=== PATIENT | male | born 1980 | race Caucasian/White ===

== ENCOUNTER 2016-12-23 18:34 | Inpatient (IN) | payer MEDICARE, OTHER ==
--- NOTE | ~2016-12-23 | CT96 ---
[facility] A Service of [facility] & [facility] RADIOLOGY TEXT RESULTS PATIENT: TETE YAN LOCATION: [facility] 463-01 : [birth year] UNIT #: [id number] AGE: [address]: Cachorro Haro MD SEX: M ORDER DR: [id number] [facility] [address] [facility] [place] [facility]. [place], [place] [address] [id number] I MR#: [id number] Acc #: [id number] NAME: TETE YAN : 1980 SEX: M STUDY DATE/TIME: 01/06/2017 14:40 UNIT: [facility] ROOM: [facility] STUDY DESCRIPTION: CT Lumbar Spine W Cont Attending Physician: Cachorro Haro M.D. Ordering Physician: Cachorro Haro M.D. Primary Care Physician: Ty Ureña M.D. MEDICAL IMAGING REPORT This report is preliminary unless electronic signature is present EXAM CT lumbar spine postmyelogram dated 01/06/2017. COMPARISON Lumbar myelogram dated 01/06/2017, MRI lumbar spine study without contrast dated 12/25/2016 and MRI lumbar spine study with contrast dated 12/26/2016. HISTORY Patient fell on 12/10/2016 with severe low back pain since then. FINDINGS This CT exam was performed with one or more of the following radiation dose reduction techniques: Automatic exposure control, adjustment of mA and/or kV according to patient size, and iterative reconstruction. CT of the lumbar spine was obtained postmyelogram in the axial plane followed by sagittal and coronal reformats. The same numbering is used as the prior MRI studies to avoid confusion. The degenerative and postoperative changes do not appear to have significantly changed involving the spine, in the last 12 days. The postoperative fluid collection noted previously is difficult to individually characterize in the current study given the differences in modality. Levoscoliosis of the lumbar spine is seen with the apex at L2. There are pedicular screws at L4 and S1 with loosening of bilateral L4 (left greater than right) and left S1 pedicular screw, particularly close to the tip. Anterior plate and screws are seen at L5-S1. The bilateral S1 vertebral body anterior screws demonstrate loosening. Intervertebral disc prosthesis is seen at L5-S1 and L4-5 without bony fusion. Bilateral L5 pars defects are noted with grade II spondylolisthesis at L5-S1. There is a 1.2 cm retrolisthesis of S1 with respect to L5. Posterior decompression is noted at L5-S1 with widely patent thecal sac. Postoperative inflammatory soft tissue changes are noted in the paraspinal muscles without any obvious STS. [facility] A Service of [facility] RADIOLOGY TEXT RESULTS PATIENT: TETE YAN LOCATION: [facility] 463-01 : [birth year] UNIT #: [id number] AGE: [address]: Cachorro Haro MD SEX: M ORDER DR: large drainable fluid collection. Bone graft is seen adjacent to the stabilization rods. IMPRESSION 1. Posterior decompression is seen at L5-S1 with widely patent thecal sac. 2. Bilateral L5 pars defects are noted with a grade II 1.2 cm retrolisthesis of S1 with respect to L5. 3. Loosening of bilateral L4 and left S1 pedicular screws are noted. 4. Anterior plate with screws are seen at L5-S1 with suspicious loosening at bilateral anterior S1 screws. 5. Intervertebral disc prosthesis at L4-5 and L5-S1 are noted without any significant bony fusion. 6. Previously noted fluid collection in the postoperative paraspinal soft tissues are difficult to individually characterize in the current study given the difference in modality. The thecal sac does not demonstrate any communication outside of it to suggest a pseudomeningocele. 7. Refer above. Dictated by... Karel Smith M.D. THIS IS AN ELECTRONICALLY VERIFIED REPORT Karel Smith M.D. at 01/07/2017 10:30 AM CPR/psc TD: 01/07/2017 03:35 JOB #: [id number] MEDICAL IMAGING REPORT COPY
--- NOTE | ~2016-12-23 | CO ---
Unit #: [id number] #: [id number] Patient: TETE YAN [id number] [address] [place], [place] [address] [id number] I MR#: [id number] NAME: TETE YAN ROOM: 463 Age: 36 Sex: M Admission Date: 12/23/2016 : 1980 Attending Physician: Cachorro Haro M.D. Primary Care Physician: Ty Ureña M.D. Consultation Date: 12/26/2016 CONSULTATION REPORT REQUESTING PHYSICIANS 1. Dr. Haro. 2. Dr. Seaman. REASON FOR CONSULTATION Positive blood culture. HISTORY OF PRESENT ILLNESS Patient is a 35-year-old male with history of multiple lumbar spine surgeries including hardware implant and explant. Last 1 was, I think, late last year. He was admitted to [facility] in October of last year and had methicillin sensitive Staphylococcus aureus bacteremia thought to because of line, which was removed. From the notes, it looks like he was sent out on 10 days of p.o. Keflex. Patient tells me that he has been on IV antibiotics for the last three months after his recent surgery, which was done two weeks ago, and the PICC line was removed. There is a lot of conflicting news and according to previous notes, patient does have a manipulative behavior. He is admitted again at this time with back pain, episodes of fall. Blood culture, one of two, grew Staphylococcus aureus and sensitivity is pending. He is on vancomycin. Infectious disease consultation was requested for further evaluation and antibiotic management. Patient denies any fever, chills, vomiting, headaches, or dizziness. PAST MEDICAL HISTORY 1. Lumbar stenosis and spondylolisthesis, L5-S1. 2. Multiple back surgeries. 3. Hypertension. 4. On female hormones with plans to transition to female gender. 5. MSSA bacteremia in the past. 6. Tonsillectomy. 7. Appendectomy. SOCIAL HISTORY Noncontributory. FAMILY HISTORY Noncontributory. ALLERGIES Allergic to Bactrim, Ultram, tramadol, Haldol, and Benadryl. MEDICATIONS Current medications reviewed. Antibiotics include vancomycin. Unit #: [id number] #: [id number] Patient: TETE YAN PHYSICAL EXAMINATION GENERAL APPEARANCE: Laying in bed. Does not seem to be in any distress. VITAL SIGNS: Temperature 98.2, pulse 90, respirations 18, and blood pressure 108/75. HEENT: Unremarkable. NECK: Supple. CHEST: Clear to auscultation. HEART: Normal S1 and S2. ABDOMEN: Soft and nontender. EXTREMITIES: Shows no edema. BACK: With evidence of previous surgery but no open area. DIAGNOSTIC STUDIES IMAGING: MRI of the lumbar spine without contrast as patient was unable to do images after contrast shows some phlegmon and previous surgery changes with no active enhancement. LABORATORY: BUN 12 and creatinine 0.9. WBC 11.9, hemoglobin 10, and platelets 558. Urinalysis unremarkable. Blood culture, one out of two, gram-positive cocci identified as Staphylococcus aureus sensitivity is pending. ASSESSMENT 1. Staphylococcus aureus bacteremia. Question source. 2. History of MSSA bacteremia in October treated with oral antibiotics. 3. History of multiple back surgeries. PLAN At this time, I would go ahead and get an echocardiogram to rule out endocarditis. Will also add urine tox screen. Will get MRI of the lumbar spine with contrast and give him some extra dose of pain medications per medicine team. Continue vancomycin. Follow up cultures. Further recommendations depending upon the course. I would like to thank Dr. Haro for asking us to participate in the care of this patient. We will follow this patient along with you. Dictated by.Keven. Augie Sarmiento TD: 12/26/2016 12:10 JOB #: [id number] CONSULTATION REPORT X Haim Orellana MD CONSULTATION REPORT
--- NOTE | ~2016-12-23 | CR192 ---
[facility] A Service of [facility] & [facility] RADIOLOGY TEXT RESULTS PATIENT: TETE YAN LOCATION: [place] [address]- : [birth year] UNIT #: [id number] AGE: [address]: Cachorro Haro MD SEX: M ORDER DR: [id number] [place] [address] [facility]. [place], [place] [address] [id number] I MR#: [id number] Acc #: [id number] NAME: TETE YAN : 1980 SEX: M STUDY DATE/TIME: 01/06/2017 14:05 UNIT: [facility] ROOM: [facility] STUDY DESCRIPTION: CR Myelogram Lumbar SI Attending Physician: Cachorro Haro M.D. Ordering Physician: Cachorro Haro M.D. Primary Care Physician: Ty Ureña M.D. MEDICAL IMAGING REPORT This report is preliminary unless electronic signature is present EXAM Lumbar myelogram HISTORY Previous back surgeries. Since the previous surgery in late fall, the patient fell in a parking lot in October with back pain radiating down the right leg since. TECHNIQUE The procedure was explained to the patient, including risks, benefits and complications. Informed consent was obtained and a formal time-out procedure was utilized. Using sterile technique and following local anesthesia with 1% Xylocaine, a 22-gauge spinal needle was placed at the L3-4 level. Approximately 13 mL of Isovue M-200 was injected and multiple views were obtained. No exiting nerve root sleeve filling defects are noted. The spinal canal shows no significant stenosis. CT scanning will be obtained through the lumbar spine following the myelogram, with results reported separately. IMPRESSION No evidence of significant canal stenosis. No evidence of exiting nerve root compression. CT scanning following the myelogram is pending. Dictated by... Js Arzola M.D. THIS IS AN ELECTRONICALLY VERIFIED REPORT Js Arzola M.D. at 01/07/2017 4:42 PM RLF/gertrude TD: 01/06/2017 21:23 JOB #: [id number] [facility] A Service of [facility] & [facility] RADIOLOGY TEXT RESULTS PATIENT: TETE YAN LOCATION: [facility] 463-01 : [birth year] UNIT #: [id number] AGE: [address]: Cachorro Haro MD SEX: M ORDER DR: MEDICAL IMAGING REPORT COPY
--- NOTE | ~2016-12-23 | NM8 ---
[facility] A Service of [facility] & [facility] RADIOLOGY TEXT RESULTS PATIENT: TETE YAN LOCATION: [facility] 463- : [birth year] UNIT #: [id number] AGE: [address]: Cachorro Haro MD SEX: M ORDER DR: [id number] [address] [place], [place] [address] [id number] I MR#: [id number] Acc #: [id number] NAME: TETE YAN : 1980 SEX: M STUDY DATE/TIME: 12/29/2016 16:13 UNIT: [facility] ROOM: [facility] STUDY DESCRIPTION: NM Bone or Joint Whole Body Attending Physician: Cachorro Haro M.D. Ordering Physician: Cachorro Haro M.D. Primary Care Physician: Ty Ureña M.D. MEDICAL IMAGING REPORT This report is preliminary unless electronic signature is present EXAM Whole-body bone scan. DATE OF EXAM 12/29/2016 HISTORY 36-year-old male complains of severe right leg pain, back pain, hurts to lie on back. Symptoms began after patient fell. Patient fell three times around 2 weeks ago. History of back surgery. COMPARISON MRI of the lumbar spine, 12/26/2016. FINDINGS Whole-body and selected spot images performed of the axial and appendicular skeleton following the intravenous administration of 27.9 mCi technetium 99m MDP. Examination demonstrates mild increased uptake within the medial compartment of both knees suggesting early degenerative arthropathy. There is also degenerative uptake within the feet and ankles. There is increased uptake in the lower lumbar spine corresponding to the site of the patient's prior surgery, but this is not well demonstrated due to overlying artifact from the patient's distended bladder with extensive bladder activity. No abnormal uptake identified within the mid to upper lumbar spine. Bilateral renal activity and normal bladder activity noted. Multifocal increased uptake is seen within the maxilla and also within the right mandible, probably related to underlying periodontal disease. Correlate clinically. IMPRESSION 1. Technically limited study for evaluation of abnormality in the lumbar region and pelvis due to marked distension of the bladder and overlying bladder activity. STS. [facility] A Service of [facility] & [facility] RADIOLOGY TEXT RESULTS PATIENT: TETE YAN LOCATION: [place] [address] : [birth year] UNIT #: [id number] AGE: [address]: Cachorro Haro MD SEX: M ORDER DR: 2. Mild degenerative uptake medial compartment of both knees. 3. Multifocal degenerative uptake in both feet and ankles. 4. There is mild increased uptake in the lower lumbar spine at about the L4-5 level best seen on the posterior acquisitions, and corresponds to the site of the patient's previous back surgery. 5. Not mentioned above, there is a small amount of increased uptake within the cervical spine, possibly degenerative in nature. Dictated by... Charlie Farfan M.D. THIS IS AN ELECTRONICALLY VERIFIED REPORT Charlie Farfan M.D. at 01/01/2017 10:26 AM Mars TD: 12/30/2016 16:04 JOB #: [id number] MEDICAL IMAGING REPORT COPY
--- NOTE | ~2016-12-23 | CO ---
Unit #: [id number] #: [id number] Patient: TETE YAN [id number] [address] [address] [id number] I MR#: [id number] NAME: TETE YAN ROOM: 463 Age: 36 Sex: M Admission Date: 12/23/2016 : 1980 Attending Physician: Cachorro Haro M.D. Primary Care Physician: Ty Ureña M.D. Consultation Date: 12/23/2016 CONSULTATION REPORT REASON FOR CONSULTATION Medical management. HISTORY OF PRESENT ILLNESS This 36-year-old male with history of hypertension, chronic low back pain, on female hormones as the patient plans to transition to a female gender, is admitted to the surgical service for acute on chronic low back pain. We were asked to see for medical problems. The patient does have a history of chronic low back pain and is status post back surgery x3. He states that he has recently fallen due to hypotension and did required admission to [facility] recently where his antihypertensive medications were discontinued. Due to worsening back pain and right lumbar radiculopathy he was directly admitted to the spine surgery service. Currently, despite his usual MS Contin and Oxycodone along with muscle relaxant, he is in quite a bit of pain. He has been experiencing some nausea and vomiting as well. PAST MEDICAL HISTORY 1. Severe lumbar stenosis and spondylolisthesis L5-S1 status post multiple back surgeries. Last surgery was in October where he underwent revision of his hardware with removal of a left L5 pedicle screw. 2. Previous history of hypertension with episodes of hypotension and syncope while on antihypertensive medication. 3. The patient is on female hormones and plans to transition to a female gender in the future. 4. MRSA bacteremia and sepsis. Admitted to [facility] last fall. Will obtain records. 5. Back surgery x3. 6. Tonsillectomy. 7. Appendectomy. SOCIAL HISTORY The patient lives with his mother and girlfriend. Remote history of tobacco use, does not drink alcohol or use illicit drugs. FAMILY HISTORY CAD. ALLERGIES Bactrim, Ultram, Toradol, Haldol and Benadryl. MEDICATIONS Unit #: [id number] #: [id number] Patient: TETE YAN Estradiol 2 mg b.i.d. Aldactone 100 mg b.i.d. Provera 10 mg q h.s. MS Contin 30 mg b.i.d. Oxycodone 20 mg q 3 hours. Zanaflex 4 mg t.i.d. as needed. Soma 350 mg b.i.d. REVIEW OF SYSTEMS Notable for increasing back pain and right lumbar radiculopathy. Previous history of hypertension, MRSA, above mentioned surgeries. All other systems are reviewed and are negative. PHYSICAL EXAMINATION GENERAL APPEARANCE: 36-year-old male who currently appears to be uncomfortable. VITAL SIGNS: Temp 98.2, pulse 88, respirations 18, 02 saturation 100% on room air, B/P 134/89. HEENT: Eyes - PERRLA, extraocular muscles are intact. Pharynx - poor dentition. NECK: Supple without adenopathy or thyromegaly. LUNGS: Chest is clear. HEART: Normal S1 and S2 without S3, S4 or murmur. ABDOMEN: Bowel sounds are present. No hepatosplenomegaly, tenderness or masses. EXTREMITIES: Without CC or E. Pedal pulses are present. No splinter hemorrhages noted over the fingernail beds. NEUROLOGIC: The patient is anxious but awake, alert, oriented. His cranial nerves are intact. He has equal strength throughout but has quite a bit of pain with any sore of movement of the right leg. Straight leg raising is positive at about 10 degrees. ASSESSMENT 1. Acute on chronic low back pain with right lumbar radiculopathy status post back surgery x3. Plans are for a CT myelogram in the morning and pain management to see. 2. History of hypertension with recent low blood pressure and syncope requiring discontinuation of antihypertensive medications. Vital signs are stable. 3. Urinary frequency. 4. Patient plans to transition to a female gender and is taking Estradiol, Provera and Aldactone. 5. History of MRSA bacteremia. PLAN 1. Check baseline labs and blood cultures. 2. Discontinue Toprol and Norvasc which were written on the JAN. 3. Old records from [facility]. 4. Obtain urinalysis. 5. DVT prophylaxis has already been ordered. Thank you very much for this consult. Will follow with you. Dictated by... Ally Hussein M.D. Unit #: [id number] #: [id number] Patient: TETE YAN AML/ljd TD: 12/24/2016 03:37 JOB #: [id number] CONSULTATION REPORT X Ally Hussein MD CONSULTATION REPORT
--- NOTE | ~2016-12-23 | MR111 ---
[facility] A Service of [facility] RADIOLOGY TEXT RESULTS PATIENT: TETE YAN LOCATION: [place] [address]- : [birth year] UNIT #: [id number] AGE: [address]: Cachorro Haro MD SEX: M ORDER DR: [id number] [place] [id number] [facility]. [place], [place] [address] [id number] I MR#: [id number] Acc #: [id number] NAME: TETE YAN : 1980 SEX: M STUDY DATE/TIME: 12/26/2016 16:55 UNIT: [facility] ROOM: [facility] STUDY DESCRIPTION: MR Lumbar W Contrast Attending Physician: Cachorro Haro M.D. Ordering Physician: Haim Orellana M.D. Primary Care Physician: Ty Ureña M.D. MRI CENTER REPORT This report is preliminary unless electronic signature is present. EXAM Lumbar spine MRI post contrast, 12/26/16 COMPARISON STUDIES Noncontrast lumbar MRI, 12/25/16 CLINICAL HISTORY Lumbar surgery with low back pain for 2 weeks. FINDINGS There is rim enhancement around the margins of the fluid identified on the prior study, but it is fairly modest. The findings appear to most likely represent a postoperative seroma. Of course, abscess cannot be excluded, but it is not strongly suspected based on the findings here. Of note, there is no substantial or abnormal intrathecal enhancement. There is no unexpected or abnormal enhancement of the bony spinal column or intervertebral disk. IMPRESSION 1. Postcontrast images do show some rim enhancement around the fluid collection seen on the other exam, but the findings do not convincingly suggest an abscess, but rather likely represent those of a postoperative seroma. 2. No other unusual or unexpected enhancement is seen. Dictated by... Alberto Shipley M.D. THIS IS AN ELECTRONICALLY VERIFIED REPORT Alberto Shipley M.D. at 12/29/2016 12:27 PM [facility] A Service of [facility] & [facility] RADIOLOGY TEXT RESULTS PATIENT: TETE YAN LOCATION: [facility] 46- : [birth year] UNIT #: [id number] AGE: [address]: Cachorro Haro MD SEX: M ORDER DR: Jodi TD: 12/27/2016 05:26 JOB #: [id number] MRI CENTER REPORT COPY
--- NOTE | ~2016-12-23 | A ---
[facility] Nutrition Therapy DATE: 01/02/17 Patient: TETE YURIY Physician: SONG Address: [address] [place], [place] [address]PATI LAWLER Room/Bed: [address] [place] [address], Zip: [place] [address] Admit Date: 12/23/16 Date of : [birth year] Height: 6 0 Weight: 231 105 NUTRITIONAL ASSESSMENT: REASON: LOS NUTRITION ASSESSMENT 36 YO MALE ADMITTED FOR NAUSEA, LUMBAR STENOSIS, UNCONTROLLED PAIN PMH: HTN, multiple back surgeries, on female hormones with plans to transition to female, MSSA, appendectomy Anthropometrics: Ht: 6'0" Adm wt: 105 kg BMI: 31.4 Labs: Gluc 123 Na+ 134 Meds: Reglan, KCl, oxycodone I/O & Bowel function: 1030/700, last BM 12/30 Skin Integrity: Scar to right forearm/ back Edema: None noted Diet: Regular Assessment: Chart reviewed, events noted. Pt seen for LOS nutrition assessment. RD attempted nutrition interview, and the pt was asleep with phone to ear. RD attempted to wake pt several times without success. Of note, the pt does have uncontrolled pain on pain medication. RD spoke with senior care manager Kaykay about the pt. Apparently the pt does not typically eat well for breakfast; however, consumes ~75-80% of lunch and dinner meals. Dx: Potential for inadequate nutrient intake RT lethargy, pain AEB senior care managermanager ct, attempted nutrition interview. Intervention: 1. Regular diet 2. Ensure if needed Monitoring, Evaluation and Goals: 1. Oral intake; tolerate >50-75% meals 2. Labs; WNL 3. Weight; prevent unintentional weight loss Recommendations: 1. Continue regular diet as tolerated. [facility] Therapy DATE: 01/02/17 Patient: TETE YAN Physician: SONG Address: [address] [place], [place] [address]PATI LAWLER Room/Bed: [address] [place] [address], Zip: [place] [address] Admit Date: 12/23/16 Date of : [birth year] Height: 6 0 Weight: 231 105 2. Ensure once daily at breakfast time for supplemental nutrition. Pt is at mild nutritional risk. Respectfully, MICHAEL L MILLICENT, RD, LD [facility] cc: client file
--- NOTE | ~2016-12-23 | CR72 ---
[facility] A Service of [facility] & [facility] RADIOLOGY TEXT RESULTS PATIENT: TETE YAN LOCATION: [facility]- : [birth year] UNIT #: [id number] AGE: [address]: Cachorro Haro MD SEX: M ORDER DR: [id number] [facility] [address] [facility]. [place], [place] [address] [id number] I MR#: [id number] Acc #: [id number] NAME: TETE YAN : 1980 SEX: M STUDY DATE/TIME: 12/28/2016 00:31 UNIT: [facility] ROOM: [facility] STUDY DESCRIPTION: CR Chest Single View Portable Attending Physician: Cachorro Haro M.D. Ordering Physician: Cachorro Haro M.D. Primary Care Physician: Ty Ureña M.D. MEDICAL IMAGING REPORT This report is preliminary unless electronic signature is present EXAM Portable chest 12/28/2016 0031 hours INDICATION PICC placement today. FINDINGS AP portable views of the chest are compared with 11/03/2016. Right arm-approach PICC is at the cavoatrial junction. Lung volumes are low but the lungs are clear. Cardiac and mediastinal contours are within normal limits. No pneumothorax. Dictated by... Js Giordano Jr., M.D. THIS IS AN ELECTRONICALLY VERIFIED REPORT Js Giordano Jr., M.D. at 12/28/2016 8:36 PM KAYLEN/anitra TD: 12/28/2016 09:23 JOB #: [id number] MEDICAL IMAGING REPORT COPY
--- NOTE | ~2016-12-23 | MR113 ---
[facility] A Service of [facility] RADIOLOGY TEXT RESULTS PATIENT: TETE YAN LOCATION: [facility] 463-01 : [birth year] UNIT #: [id number] AGE: [address]: Cachorro Haro MD SEX: M ORDER DR: [id number] [facility] [address] [facility]. [place], [place] [address] [id number] I MR#: [id number] Acc #: [id number] NAME: TETE YAN : 1980 SEX: M STUDY DATE/TIME: 12/25/2016 20:54 UNIT: [facility] ROOM: [facility] STUDY DESCRIPTION: MR Lumbar Wo Contrast Attending Physician: Cachorro Haro M.D. Ordering Physician: Elma Diaz M.D. Primary Care Physician: Ty Ureña M.D. MRI CENTER REPORT This report is preliminary unless electronic signature is present. EXAM MRI of the lumbar spine without contrast dated 12/25/2016. COMPARISON CT lumbar spine without contrast dated 12/11/2016. HISTORY Severe low back pain which extends into the right hip for 2 weeks. FINDINGS Multisequence, multiplanar imaging of the lumbar spine was obtained without contrast as patient refused further imaging in the middle of the study. No nurse had given pain medications, patient was in severe pain and refused further imaging. Postoperative changes are noted with bipedicular screws at L4 and S1. 1.3 cm retrolisthesis of S1 is seen with respect to L5. Intervertebral disc prosthesis is at L4-5 and L5-S1. Posterior decompression is seen at L5-S1. Correlate with operative note. Susceptibility artifact from hardware is seen limiting evaluation. There is hyperintense T2 and hypointense T1 signal lesion noted within the posterior subcutaneous soft tissue extending from the midline at the level of L2-3, where it measures 1.5 x 2.2 cm, down to the level of L5-S1. It extends to the right paraspinous region from the level of L4-5 to L5-S1. This fluid collection was also seen on the prior CT from 12/11/2016 and it has not significantly increased after giving allowances to the differences in modality. Subcutaneous soft tissue edema is noted in the lumbar spine throughout its length. Retroperitoneum is unremarkable. L1-2, L2-3: Unremarkable. L3-4: Concentric disc bulge with small central protrusion and mild inferior right neural foraminal narrowing. Borderline sized to mild canal STS. [facility] A Service of [facility] RADIOLOGY TEXT RESULTS PATIENT: TETE YAN LOCATION: [place] [address] : [birth year] UNIT #: [id number] AGE: [address]: Cachorro Haro MD SEX: M ORDER DR: stenosis. L4-5, L5-S1: Postoperative changes are noted with patent thecal sac. Moderate bilateral L4-5 and severe bilateral L5-S1 neural foraminal narrowing are present. IMPRESSION 1. The patient refused postcontrast imaging as he could not lay further on the table. The current study was done without contrast. 2. Postoperative changes are noted from L4-S1 with intervertebral disc prosthesis and bipedicular screws, particularly at L4 and S1. Stable. 3. 1.3 cm retrolisthesis of S1 with respect to L5, stable. 4. Postoperative edematous changes within the paraspinal muscles from the level of L2 to the level of S1 are redemonstrated with a more focal hyperintense T2-signal lesion extending from the midline at the level of L2 and to L4 with some extension to the right paraspinous region from L4-5 to L5-S1 level. It is relatively stable when compared to the prior study and is most suggestive of postoperative seroma. An abscess cannot be completely excluded without postcontrast imaging, however, given the relative stability in the last 14 days it is probably a chronic process. 5. Degenerative changes of the other levels are relatively stable. Dictated by... Karel Smith M.D. THIS IS AN ELECTRONICALLY VERIFIED REPORT Karel Smith M.D. at 12/26/2016 2:51 PM CPR/tmw TD: 12/26/2016 09:07 JOB #: [id number] MRI CENTER REPORT COPY
--- NOTE | ~2016-12-23 | HP ---
Unit #: [id number] #: [id number] Patient: TETE YAN [id number] [address] [place], [place] [address] [id number] I MR#: [id number] NAME: TETE YAN ROOM: 463 Age: 36 Sex: M Admission Date: 12/23/2016 : 1980 Attending Physician: Cachorro Haro M.D. Primary Care Physician: Ty Ureña M.D. HISTORY AND PHYSICAL CHIEF COMPLAINT Nausea. HISTORY OF PRESENT ILLNESS The patient is a 36-year-old male who has had several lumbar spine procedures. He has had multiple falls and multiple ER admissions at [facility]. Most recently, a CT scan was obtained which did not show any change or dislodgement of his hardware. He complains of severe right leg pain when he is up and ambulatory with a walker. He was seen earlier today in the emergency room lobby by myself where he was given a prescription for MS Contin to take twice a day, 30 mg, #14, oxycodone to take every three hours as needed for pain, #56, and Soma 350 mg to take q.12 hours, #60 p.r.n. spasm. The patient reports severe nausea and vomiting at home. PAST MEDICAL HISTORY Severe lumbar stenosis and spondylolisthesis L5-S1. PAST SURGICAL HISTORY Posterior and anterior surgery. He had most recently in October revision of his hardware with removal of a left L5 pedicle screw. He initially responded well but has had multiple falls since that time without any interval dislodgment of his lumbar hardware. MRI scan of the lumbar spine did not reveal any disc herniations or other cause. He developed a weakness on the right side which resolved on its own after several days of bedrest. SOCIAL HISTORY He is a nonsmoker and nondrinker. REVIEW OF SYSTEMS Fourteen points negative except for History of Present Illness. PHYSICAL EXAMINATION LUNGS: Clear. HEART: Regular rate and rhythm. ABDOMEN: Soft and nontender. EXTREMITIES: He has global weakness in the right leg and guarding with difficulty of movement. He ambulates slowly with a walker. Well-healed surgical incision over the lumbar spine. DIAGNOSTIC STUDIES IMAGING: Recent CT scan shows no dislodgement or change in the position of his lumbar hardware. Unit #: [id number] #: [id number] Patient: TETE YAN CLINICAL IMPRESSION 1. Severe nausea. 2. Chronic low back pain. 3. Multiple falls, indeterminant etiology. RECOMMENDATIONS 1. Admission for workup of his nausea. I will ask Dr. Luis Felipe Zapien to consult regarding this. 2. Uncontrolled pain is a very difficult pain management. I will consult Dr. Sanchez for his advice in that regard. 3. New-onset falls unexplained by plain CT scan. Once the nausea resolves, we will get a CT myelogram or other test to determine the etiology if any. 1. Dictated by Augie Bosch/lyric TD: 12/23/2016 21:05 JOB #: [id number] CC: Augie Randall M.D. HISTORY AND PHYSICAL X Cachorro Haro MD X HISTORY AND PHYSICAL
--- NOTE | ~2016-12-23 | DS ---
Unit #: [id number] #: [id number] Patient: TETE YAN [id number] [address] [address] [id number] I MR#: [id number] NAME: TETE YAN ROOM: 463 Age: 36 Sex: M Admission Date: 12/23/2016 : 1980 Discharge Date: 01/07/2017 Attending Physician: Cachorro Haro M.D. Primary Care Physician: Ty Ureña M.D. DISCHARGE SUMMARY PRINCIPAL FINAL DIAGNOSIS Right leg lumbar radiculopathy. HISTORY OF PRESENT ILLNESS The patient is a 36-year-old, who was admitted with intractable right leg pain. Plain CT scan did not show any obvious findings. A CT myelogram showed loose hardware at both L4 screws. He was transferred to [facility] for definitive care, namely surgery. Dr. Sanchez was consulted for pain management. He was given his medications of OxyContin 60 mg and oxycodone 20 mg to take as needed for pain. Further care is within the [facility] Record System regarding his ongoing care. Dictated by... Augie Bosch/damion TD: 01/31/2017 02:58 JOB #: [id number] DISCHARGE SUMMARY Page 1 of 1 X Cachorro Haro MD X DISCHARGE SUMMARY
[~2016-12-23 18:34] MED LIST: ABILIFY PO; ALDACTONE; ALDACTONE100 MG PO; AMOXICILLIN500 M1 PO; ATENOLOL PO; ATIVAN; ATIVAN PO; BACITRACIN15 GM TP; BACITRACIN30 GM TOP; BACLOFEN10 MG PO; BENTYL10 MG DOB; BENTYL20 M1 PO; BUSPAR PO; CATAPRES0.1 MG PO; CLEOCIN PO; CLEOCIN150 M1 PO; CLEOCIN150 MG PO; COATED ASPIRIN325 M1 PO; DARVOCET-N 1001 TAB; DELTASONE20 MG PO; DEPAKOTE PO; DEPO-ESTRADIO5 MG/ML INJ; DIAZEPAM PO; DICLOFENAC PO; DILAUDID2 MG PO; DOXYCYCLINE; ESTRACE PO; ESTRACE2 M1 PO; FLEXERIL PO; FLEXERIL10 M1 PO; FLEXERIL10 MG PO; GENOPTIC5 ML OP; GENTAK3.5 GM OP; HCTZ PO; HORMONE THERAPY PO; HYDROCHLOROTHIA25 MG PO; IBUPROFEN PO; KEFLEX; KEFLEX500 M2 PO; KETOPROFEN PO; KLONOPIN PO; LAMICTAL PO; LEXAPRO; LEXAPRO PO; LISINOPRIL-HCTZ1 T15 PO; LITHIUM; LITHIUM PO; LODINE300 M1 PO; LOPRESSOR PO; LORTAB 10-3251 EACH PO; LORTAB 10/500 T1 TAB PO; LORTAB 7.5-5001 TAB PO; MEDROL DOSEPAK4 MG DOB; MEDROL DOSEPAK4 MG PO; METOPROLOL SUCC25 MG PO; METOPROLOL TART25 MG PO; MOBIC PO; MORPHINE PO; MOTRIN600 MG PO; MUSCLE RELAXER; NAPROSYN500 MG PO; NEURONTIN100 MG PO; NO MEDICATIONS; NORFLEX100 M1; NORFLEX100 M1 PO; NORVASC PO; OXYCODONE PO; PAXIL PO; PENICILLIN; PENICILLIN PO; PENICILLIN V P500 MG PO; PERCOCET 10/31 UDTA1 PO; PHENERGAN W/CO120 ML PO; PHENERGAN25 M1 DOB; PHENERGAN25 M1 PO; PHENERGAN25 MG PO; PREDNISONE PO; PREDNISONE10 MG/DOSE PO; PRINIVIL10 MG PO; PROTONIX PO; PROVERA10 MG PO; REQUIP1 MG PO; ROBAXIN 750750 M1 PO; ROBAXIN PO; ROBAXIN500 MG PO; ROCEPHIN; SEROQUEL; SEROQUEL PO; SOMA; TOPROL XL PO; TORADOL10 MG; TYLENOL #3 PO; ULTRAM PO; VICODIN 5/1 TAB 5/50 PO; VICODIN 5/500 T1 TAB PO; VISCOUS LIDOCAINE; VOLTAREN50 MG PO; VOLTAREN75 MG PO; ZANAFLEX4 M1; ZANAFLEX4 M1 PO; ZOFRAN ODT4 MG PO; ZOFRAN ODT4 MG/UDTAB SL; ZOFRANODT PO; ZOFRANODT SL; ZOLOFT; ZYPREXA PO; [UNRECOGNIZED DRUG - REMARK]
[2016-12-23] MEDS ORDERED: SOMA PO (20:45)
[2016-12-24 00:50] LABS: BASOPHIL% 0.3 % (0-2.5); EOSINOPHIL# 0.2 X10e3 (0-0.7); EOSINOPHIL% 1.3 % (0.0-7.0); HEMATOCRIT 32.1 % (38.0-50.0); HEMOGLOBIN 10.4 gm/dL (13.0-16.0); LYMPHOCYTE# 1.2 X10e3 (1.0-3.5); LYMPHOCYTE% 9.6 % (17.0-45.0); MEAN CELL VOLUME 74.3 FL (83-96); MEAN CORPUSCULAR HEMOGLOBIN 24.1 PG (28-34); MEAN CORPUSCULAR HGB CONC 32.5 g/dL (30-36); MEAN PLATELET VOLUME 6.8 FL (6.5-11.5); MONOCYTE# 1.1 X10e3 (0-1.0); MONOCYTE% 8.7 % (3.0-12.0); NEUTROPHIL# 10.3 X10e3 (1.5-7.1); NEUTROPHIL% 80.1 % (40-75); PLATELET COUNT 484 X10e3 (140-420); RED BLOOD COUNT 4.32 X10e (3.90-5.60); RED CELL DISTRIBUTION WIDTH 16.6 % (11.0-15.5); WHITE BLOOD COUNT 12.9 X10e3 (4.0-10.5)
[2016-12-24 00:51] LABS: DIFF IND NO
[2016-12-24 01:14] LABS: ALBUMIN SERUM 3.8 g/dL (3.5-5.0); ALKALINE PHOSPHATASE 83 U/L (32-92); ALT (SGPT) 15 U/L (10-40); AST (SGOT) 13 U/L (10-42); BILIRUBIN,TOTAL 0.4 mg/dL (0.2-2.0); BLOOD UREA NITROGEN 10 mg/dL (9-23); CALCIUM SERUM 8.6 mg/dL (8.4-10.2); CARBON DIOXIDE 25 mmol/L (22-31); CHLORIDE 106 mmol/L (100-111); GLOM FILT RATE Estimated ABOVE60 mL/min (>60); GLUCOSE FASTING 120 mg/dL (70-110); POTASSIUM 3.3 mmol/L (3.5-5.1); PROTEIN TOTAL SERUM 8.7 g/dL (6.0-8.3); SODIUM 137 mmol/L (135-145)
[2016-12-25 03:14] LABS: BASOPHIL# 0.1 X10e3 (0-0.3); BASOPHIL% 0.6 % (0-2.5); EOSINOPHIL# 0.4 X10e3 (0-0.7); EOSINOPHIL% 3.4 % (0.0-7.0); HEMATOCRIT 31.5 % (38.0-50.0); HEMOGLOBIN 10.2 gm/dL (13.0-16.0); LYMPHOCYTE# 2.2 X10e3 (1.0-3.5); LYMPHOCYTE% 18.9 % (17.0-45.0); MEAN CELL VOLUME 74.5 FL (83-96); MEAN CORPUSCULAR HGB CONC 32.2 g/dL (30-36); MEAN PLATELET VOLUME 7.2 FL (6.5-11.5); MONOCYTE# 1.4 X10e3 (0-1.0); MONOCYTE% 11.8 % (3.0-12.0); NEUTROPHIL# 7.6 X10e3 (1.5-7.1); NEUTROPHIL% 65.3 % (40-75); PLATELET COUNT 507 X10e3 (140-420); RED BLOOD COUNT 4.23 X10e (3.90-5.60); RED CELL DISTRIBUTION WIDTH 17.2 % (11.0-15.5); WHITE BLOOD COUNT 11.6 X10e3 (4.0-10.5)
[2016-12-25 03:19] LABS: DIFF IND NO
[2016-12-25 03:32] LABS: URINE SOURCE CLEAN CATCH
[2016-12-25 03:38] LABS: URINE APPEARANCE CLEAR; URINE BILIRUBIN NEG (NEG); URINE BLOOD NEG (NEG); URINE COLOR YELLOW; URINE GLUCOSE NEG (NEG); URINE KETONE NEG (NEG); URINE LEUKOCYTE ESTERASE NEG (NEG); URINE NITRATE NEG (NEG); URINE PH 5.5 (5-8); URINE PROTEIN NEG (NEG); URINE SPECIFIC GRAVITY 1.017 (1.003-1.035)
[2016-12-25 03:39] LABS: BLOOD UREA NITROGEN 9 mg/dL (9-23); CALCIUM SERUM 8.9 mg/dL (8.4-10.2); CARBON DIOXIDE 26 mmol/L (22-31); CHLORIDE 100 mmol/L (100-111); CREATININE SERUM 0.9 mg/dL (0.6-1.4); GLOM FILT RATE Estimated ABOVE60 mL/min (>60); GLUCOSE FASTING 95 mg/dL (70-110); MAGNESIUM 2.1 mg/dL (1.6-3.0); POTASSIUM 3.7 mmol/L (3.5-5.1); SODIUM 136 mmol/L (135-145)
[2016-12-25 03:42] LABS: CULTURE INDICATED? NO
[2016-12-26 03:26] LABS: HEMATOCRIT 32.4 % (38.0-50.0); HEMOGLOBIN 10.5 gm/dL (13.0-16.0); MEAN CELL VOLUME 74.1 FL (83-96); MEAN CORPUSCULAR HEMOGLOBIN 24.1 PG (28-34); MEAN CORPUSCULAR HGB CONC 32.5 g/dL (30-36); MEAN PLATELET VOLUME 6.9 FL (6.5-11.5); RED BLOOD COUNT 4.37 X10e (3.90-5.60); WHITE BLOOD COUNT 11.9 X10e3 (4.0-10.5)
[2016-12-26 03:58] LABS: BLOOD UREA NITROGEN 12 mg/dL (9-23); BUN/CREATININE RATIO 13.33; CALCIUM SERUM 9.2 mg/dL (8.4-10.2); CARBON DIOXIDE 28 mmol/L (22-31); CHLORIDE 98 mmol/L (100-111); CREATININE SERUM 0.9 mg/dL (0.6-1.4); GLOM FILT RATE Estimated ABOVE60 mL/min (>60); GLUCOSE FASTING 98 mg/dL (70-110); POTASSIUM 4.3 mmol/L (3.5-5.1); SODIUM 136 mmol/L (135-145)
[2016-12-26 11:04] LABS: PARTIAL THROMBOPLASTIN TIME 32.1 SECONDS (23.5-31.3); PROTHROMBIN TIME (PATIENT) 10.7 SECONDS (9.6-11.5)
[2016-12-26 21:14] LABS: AMPHETAMINE NEG (NEG); BARBITURATES NEG (NEG); BENZODIAZEPINES POS (NEG); COCAINE NEG (NEG); MARIJUANA NEG (NEG); OPIATES POS (NEG); TRICYCLIC ANTIDEPRESSANTS NEG (NEG); U METHADONE NEG (NEG)
[2016-12-27 03:43] LABS: BLOOD UREA NITROGEN 13 mg/dL (9-23); CARBON DIOXIDE 26 mmol/L (22-31); CHLORIDE 101 mmol/L (100-111); GLOM FILT RATE Estimated ABOVE60 mL/min (>60); GLUCOSE FASTING 115 mg/dL (70-110); MAGNESIUM 2.2 mg/dL (1.6-3.0); POTASSIUM 4.2 mmol/L (3.5-5.1); SODIUM 137 mmol/L (135-145)
[2016-12-28 04:13] LABS: BLOOD UREA NITROGEN 13 mg/dL (9-23); BUN/CREATININE RATIO 14.44; CALCIUM SERUM 8.6 mg/dL (8.4-10.2); CARBON DIOXIDE 24 mmol/L (22-31); CHLORIDE 104 mmol/L (100-111); CREATININE SERUM 0.9 mg/dL (0.6-1.4); GLOM FILT RATE Estimated ABOVE60 mL/min (>60); GLUCOSE FASTING 121 mg/dL (70-110); SODIUM 138 mmol/L (135-145)
[2016-12-29 03:13] LABS: HEMATOCRIT 29.6 % (38.0-50.0); HEMOGLOBIN 9.7 gm/dL (13.0-16.0); MEAN CORPUSCULAR HEMOGLOBIN 24.4 PG (28-34); MEAN CORPUSCULAR HGB CONC 32.9 g/dL (30-36); MEAN PLATELET VOLUME 6.7 FL (6.5-11.5); RED CELL DISTRIBUTION WIDTH 16.9 % (11.0-15.5); WHITE BLOOD COUNT 10.5 X10e3 (4.0-10.5)
[2016-12-29 03:37] LABS: BLOOD UREA NITROGEN 16 mg/dL (9-23); CALCIUM SERUM 8.8 mg/dL (8.4-10.2); CARBON DIOXIDE 27 mmol/L (22-31); CHLORIDE 103 mmol/L (100-111); GLOM FILT RATE Estimated ABOVE60 mL/min (>60); GLUCOSE FASTING 154 mg/dL (70-110); POTASSIUM 4.1 mmol/L (3.5-5.1); SODIUM 137 mmol/L (135-145)
[2016-12-30 03:40] LABS: BLOOD UREA NITROGEN 11 mg/dL (9-23); BUN/CREATININE RATIO 12.22; CALCIUM SERUM 8.6 mg/dL (8.4-10.2); CARBON DIOXIDE 25 mmol/L (22-31); CHLORIDE 102 mmol/L (100-111); CREATININE SERUM 0.9 mg/dL (0.6-1.4); GLOM FILT RATE Estimated ABOVE60 mL/min (>60); GLUCOSE FASTING 218 mg/dL (70-110); POTASSIUM 4.6 mmol/L (3.5-5.1); SODIUM 134 mmol/L (135-145)
[2016-12-31 06:31] LABS: URINE SOURCE CLEAN CATCH
[2016-12-31 06:48] LABS: URINE APPEARANCE CLEAR; URINE BILIRUBIN NEG (NEG); URINE BLOOD NEG (NEG); URINE COLOR YELLOW; URINE GLUCOSE NEG (NEG); URINE KETONE NEG (NEG); URINE LEUKOCYTE ESTERASE NEG (NEG); URINE NITRATE NEG (NEG); URINE PROTEIN NEG (NEG)
[2016-12-31 07:00] LABS: CULTURE INDICATED? NO
[2016-12-31 07:17] LABS: AMPHETAMINE NEG (NEG); BARBITURATES NEG (NEG); BENZODIAZEPINES POS (NEG); COCAINE NEG (NEG); MARIJUANA NEG (NEG); OPIATES POS (NEG); TRICYCLIC ANTIDEPRESSANTS NEG (NEG); U METHADONE NEG (NEG)
[2017-01-01 03:22] LABS: BLOOD UREA NITROGEN 10 mg/dL (9-23); BUN/CREATININE RATIO 11.11; CALCIUM SERUM 8.9 mg/dL (8.4-10.2); CARBON DIOXIDE 24 mmol/L (22-31); CHLORIDE 104 mmol/L (100-111); CREATININE SERUM 0.9 mg/dL (0.6-1.4); GLOM FILT RATE Estimated ABOVE60 mL/min (>60); GLUCOSE FASTING 123 mg/dL (70-110); MAGNESIUM 2.1 mg/dL (1.6-3.0); POTASSIUM 3.8 mmol/L (3.5-5.1); SODIUM 134 mmol/L (135-145)
[2017-01-03 03:23] LABS: BASOPHIL# 0.1 X10e3 (0-0.3); BASOPHIL% 0.6 % (0-2.5); EOSINOPHIL# 0.7 X10e3 (0-0.7); HEMATOCRIT 30.8 % (38.0-50.0); HEMOGLOBIN 9.8 gm/dL (13.0-16.0); LYMPHOCYTE# 1.9 X10e3 (1.0-3.5); LYMPHOCYTE% 22.5 % (17.0-45.0); MEAN CELL VOLUME 74.6 FL (83-96); MEAN CORPUSCULAR HEMOGLOBIN 23.8 PG (28-34); MEAN CORPUSCULAR HGB CONC 31.8 g/dL (30-36); MEAN PLATELET VOLUME 6.8 FL (6.5-11.5); MONOCYTE# 0.6 X10e3 (0-1.0); MONOCYTE% 6.7 % (3.0-12.0); NEUTROPHIL# 5.2 X10e3 (1.5-7.1); NEUTROPHIL% 62.2 % (40-75); PLATELET COUNT 364 X10e3 (140-420); RED BLOOD COUNT 4.13 X10e (3.90-5.60); RED CELL DISTRIBUTION WIDTH 17.3 % (11.0-15.5); WHITE BLOOD COUNT 8.4 X10e3 (4.0-10.5)
[2017-01-03 03:25] LABS: DIFF IND NO
[2017-01-03 03:48] LABS: BLOOD UREA NITROGEN 10 mg/dL (9-23); BUN/CREATININE RATIO 11.11; CALCIUM SERUM 8.8 mg/dL (8.4-10.2); CARBON DIOXIDE 26 mmol/L (22-31); CHLORIDE 107 mmol/L (100-111); CREATININE SERUM 0.9 mg/dL (0.6-1.4); GLOM FILT RATE Estimated ABOVE60 mL/min (>60); GLUCOSE FASTING 125 mg/dL (70-110); POTASSIUM 3.7 mmol/L (3.5-5.1); SODIUM 139 mmol/L (135-145)
[2017-01-05 02:42] LABS: BASOPHIL# 0.1 X10e3 (0-0.3); BASOPHIL% 1.3 % (0-2.5); EOSINOPHIL# 0.7 X10e3 (0-0.7); HEMATOCRIT 32.1 % (38.0-50.0); HEMOGLOBIN 10.4 gm/dL (13.0-16.0); LYMPHOCYTE# 1.9 X10e3 (1.0-3.5); MEAN CELL VOLUME 75.2 FL (83-96); MEAN CORPUSCULAR HEMOGLOBIN 24.3 PG (28-34); MEAN CORPUSCULAR HGB CONC 32.3 g/dL (30-36); MONOCYTE# 0.6 X10e3 (0-1.0); NEUTROPHIL# 4.9 X10e3 (1.5-7.1); NEUTROPHIL% 59.7 % (40-75); PLATELET COUNT 368 X10e3 (140-420); RED BLOOD COUNT 4.26 X10e (3.90-5.60); RED CELL DISTRIBUTION WIDTH 17.5 % (11.0-15.5); WHITE BLOOD COUNT 8.3 X10e3 (4.0-10.5)
[2017-01-05 02:47] LABS: DIFF IND NO
[2017-01-05 03:05] LABS: ALBUMIN SERUM 3.2 g/dL (3.5-5.0); ALKALINE PHOSPHATASE 55 U/L (32-92); ALT (SGPT) 8 U/L (10-40); AST (SGOT) 13 U/L (10-42); BILIRUBIN,TOTAL 1.1 mg/dL (0.2-2.0); BLOOD UREA NITROGEN 12 mg/dL (9-23); CALCIUM SERUM 8.7 mg/dL (8.4-10.2); CARBON DIOXIDE 26 mmol/L (22-31); CHLORIDE 105 mmol/L (100-111); GLOM FILT RATE Estimated ABOVE60 mL/min (>60); GLUCOSE FASTING 118 mg/dL (70-110); POTASSIUM 3.8 mmol/L (3.5-5.1); PROTEIN TOTAL SERUM 7.3 g/dL (6.0-8.3); SODIUM 138 mmol/L (135-145)
[2017-01-06 12:03] LABS: PROTHROMBIN TIME (PATIENT) 10.5 SECONDS (9.6-11.5)
== END 2017-01-07 17:25 | DRG 871 ==
LOC: C4C 18:34
PROVIDERS: Family Medicine; Internal Medicine; Internal Medicine Infectious Disease; Nurse Practitioner; Nurse Practitioner Family; Orthopaedic Surgery Orthopaedic Surgery of the Spine; Radiology Diagnostic Radiology
PROC: B24BYZZ Ultrasonography of Heart with Aorta using Other Contrast (ICD-10-PCS; principal; 2016-12-26)
PROC: 02HV33Z Insertion of Infusion Device into Superior Vena Cava, Percutaneous Approach (ICD-10-PCS; 2016-12-27)
PROC: B01BYZZ Fluoroscopy of Spinal Cord using Other Contrast (ICD-10-PCS; 2017-01-06)
DX: A41.01 Sepsis due to Methicillin susceptible Staphylococcus aureus (principal); I33.0 Acute and subacute infective endocarditis; T85.698A Other mechanical complication of other specified internal prosthetic devices, implants and grafts, initial encounter; M48.06 Spinal stenosis, lumbar region; W19.XXXA Unspecified fall, initial encounter; M43.17 Spondylolisthesis, lumbosacral region; I10 Essential (primary) hypertension; R35.0 Frequency of micturition; E87.6 Hypokalemia; R73.9 Hyperglycemia, unspecified; T38.0X5A Adverse effect of glucocorticoids and synthetic analogues, initial encounter; B95.61 Methicillin susceptible Staphylococcus aureus infection as the cause of diseases classified elsewhere; F64.9 Gender identity disorder, unspecified; Y82.8 Other medical devices associated with adverse incidents
CPT/HCPCS: 71010; 72132; 72148; 72149; 72265; 78306; 80048; 80053; 80307; 81003; 83036; 83735; 85025; 85027; 85610; 85652; 85730; 86140; 87040; 87077; 87186; 87806; 93306; A9503; A9577; J1170; J1650; J2405; J3370; Q9966

== ENCOUNTER 2017-02-07 22:23 | Emergency (ER) | payer MEDICARE, OTHER ==
[~2017-02-07 22:23] MED LIST changes: +SOMA PO
== END 2017-02-07 22:50 | disposition home or self-care (01) ==
LOC: SED 22:23
DX: T82.514A Breakdown (mechanical) of infusion catheter, initial encounter (principal); F41.9 Anxiety disorder, unspecified; Z98.890 Other specified postprocedural states; Z88.2 Allergy status to sulfonamides; Z88.5 Allergy status to narcotic agent; Z91.040 Latex allergy status; Z79.899 Other long term (current) drug therapy
CPT/HCPCS: 99282

== ENCOUNTER 2017-02-08 11:30 | Emergency (ER) | payer MEDICARE, OTHER ==
[2017-02-09] MEDS ORDERED: VANCOMYCIN IV (13:19)
[2017-02-09] MEDS ORDERED: MS CONTIN PO (13:20)
[2017-02-09] MEDS ORDERED: ZANAFLEX PO (13:20)
[2017-02-09] MEDS ORDERED: OXYCODONE PO (13:20)
== END 2017-02-08 16:59 | disposition left against medical advice (07) ==
LOC: CED 11:30
DX: Z53.21 Procedure and treatment not carried out due to patient leaving prior to being seen by health care provider (principal)

== ENCOUNTER 2017-02-09 13:14 | Emergency (ER) | payer MEDICARE, OTHER ==
--- NOTE | ~2017-02-09 | CT4 ---
[facility] A Service of [facility] & [facility] RADIOLOGY TEXT RESULTS PATIENT: TETE YAN LOCATION: SED : [birth year] UNIT #: [id number] AGE: [address]: Nia Thomas MD SEX: M ORDER DR: [id number] [address] [address] [id number] E MR#: [id number] Acc #: [id number] NAME: TETE YAN : 1980 SEX: M STUDY DATE/TIME: 02/09/2017 15:05 UNIT: SED ROOM: STUDY DESCRIPTION: CT Abd and Pelv Wo Cont Attending Physician: Nia Thomas M.D. Ordering Physician: Physician Non-Staff Primary Care Physician: Ulysses Reed M.D. MEDICAL IMAGING REPORT This report is preliminary unless electronic signature is present. EXAM CT of the abdomen and pelvis without contrast media HISTORY Nausea vomiting since yesterday. TECHNIQUE Transaxial imaging of the abdomen and pelvis was performed without contrast and compared directly to the study of 09/26/2016. This CT exam was performed with one or more of the following radiation dose reduction techniques: automatic exposure control, adjustment of mA and/or kV according to patient size, and iterative reconstruction. FINDINGS Scans through the lung bases are normal. Liver, gallbladder, spleen, adrenal glands and pancreas are normal. The patient has small nonobstructing stones in both kidneys measure about 1 - 2 mm on the right and measuring about 1 mm on the left. No dilated or thickened loops of bowel are identified. There are postop changes of prior appendectomy. Scans through the pelvis show small inguinal hernias, right greater than left containing fat. There are postop changes in midline. The patient has had extensive lumbar fusion. There is a small fluid collection posterior to the spine measuring 3.7 x 3.8 x 8 cm. It does contain a small amount of air. This most likely is related to the patient's recent surgery on 01/09/2017. That patient has been fused from L3-S1. There is grade 1 anterolisthesis of L5 on S1. CONCLUSION 1. No acute findings in the abdomen or pelvis. STS. [facility] A Service of [facility] RADIOLOGY TEXT RESULTS PATIENT: TETE YAN LOCATION: SED : [birth year] UNIT #: [id number] AGE: [address]: Nia Thomas MD SEX: M ORDER DR: 2. Status post appendectomy. 3. Small bilateral inguinal hernias. 4. Extensive postoperative changes of fusion from L3 through -S1. Small fluid air collection posterior to the fusion site measuring 3.3 x 3.7 x 8 cm in the midline. This could represent merely some postoperative air at the site although certainly an abscess has to be considered. Please correlate with patient's surgical history and clinical exam. Dictated by... Cachorro Becker M.D. THIS IS AN ELECTRONICALLY VERIFIED REPORT Cachorro Becker M.D. at 02/12/2017 12:00 PM CYNTHIA/serge TD: 02/09/2017 19:21 JOB #: [id number] MEDICAL IMAGING REPORT Page 1 of 1
[2017-02-09] MEDS ORDERED: VANCOMYCIN IV (13:19)
[2017-02-09] MEDS ORDERED: MS CONTIN PO (13:20)
[2017-02-09] MEDS ORDERED: OXYCODONE PO (13:20)
[2017-02-09] MEDS ORDERED: ZANAFLEX PO (13:20)
[2017-02-09 14:02] LABS: BASOPHIL# 0.1 X10e3 (0-0.3); BASOPHIL% 0.6 % (0-2.5); EOSINOPHIL# 0.1 X10e3 (0-0.7); EOSINOPHIL% 1.1 % (0.0-7.0); HEMATOCRIT 28.9 % (38.0-50.0); HEMOGLOBIN 9.2 gm/dL (13.0-16.0); LYMPHOCYTE# 1.1 X10e3 (1.0-3.5); LYMPHOCYTE% 9.5 % (17.0-45.0); MEAN CELL VOLUME 74.7 FL (83-96); MEAN CORPUSCULAR HEMOGLOBIN 23.9 PG (28-34); MEAN PLATELET VOLUME 6.6 FL (6.5-11.5); MONOCYTE# 0.6 X10e3 (0-1.0); MONOCYTE% 5.3 % (3.0-12.0); NEUTROPHIL# 9.2 X10e3 (1.5-7.1); NEUTROPHIL% 83.5 % (40-75); PLATELET COUNT 487 X10e3 (140-420); RED BLOOD COUNT 3.88 X10e (3.90-5.60); RED CELL DISTRIBUTION WIDTH 19.1 % (11.0-15.5); WHITE BLOOD COUNT 11.1 X10e3 (4.0-10.5)
[2017-02-09 14:17] LABS: DIFF IND NO
[2017-02-09 14:26] LABS: ALKALINE PHOSPHATASE 86 U/L (32-92); ALT (SGPT) 12 U/L (10-40); AST (SGOT) 18 U/L (10-42); BILIRUBIN,TOTAL 0.8 mg/dL (0.2-2.0); BLOOD UREA NITROGEN 6 mg/dL (9-23); BUN/CREATININE RATIO 6.66; CALCIUM SERUM 8.7 mg/dL (8.4-10.2); CARBON DIOXIDE 27 mmol/L (22-31); CHLORIDE 110 mmol/L (100-111); CREATININE SERUM 0.9 mg/dL (0.6-1.4); GLOM FILT RATE Estimated 108.7 mL/min (>60); GLUCOSE FASTING 118 mg/dL (70-110); LIPASE 38 U/L (22-51); POTASSIUM 3.6 mmol/L (3.5-5.1); PROTEIN TOTAL SERUM 7.9 g/dL (6.0-8.3); SODIUM 142 mmol/L (135-145)
[2017-02-09 14:31] LABS: URINE SOURCE CLEAN CATCH
[2017-02-09 14:33] LABS: URINE APPEARANCE CLEAR; URINE BILIRUBIN NEG (NEG); URINE BLOOD NEG (NEG); URINE COLOR YELLOW; URINE GLUCOSE NEG (NORM); URINE KETONE NEG (NEG); URINE LEUKOCYTE ESTERASE NEG (NEG); URINE NITRATE NEG (NEG); URINE PROTEIN 1+ (NEG); URINE UROBILINOGEN 0.2 MG/DL (NORM)
[2017-02-09 14:39] LABS: MICRO INDICATED? YES
[2017-02-09 14:39] LABS: BILIRUBIN, DIRECT <0.1 mg/dL (0.0-0.2); BILIRUBIN,INDIRECT 0.7 mg/dL (0.0-0.9)
[2017-02-09 14:46] LABS: URINE BACTERIA NEG (NEG); URINE RBC 0-2 /[HPF] (0-2); URINE SQUAMOUS EPITHELIAL CELL FEW /[HPF]; URINE WBC 0-2 /[HPF] (0-5)
== END 2017-02-09 17:28 | disposition home or self-care (01) ==
LOC: SED 13:14
PROVIDERS: Emergency Medicine
DX: R10.9 Unspecified abdominal pain (principal); I10 Essential (primary) hypertension; R11.2 Nausea with vomiting, unspecified; Z88.2 Allergy status to sulfonamides; Z88.8 Allergy status to other drugs, medicaments and biological substances; Z91.040 Latex allergy status; Z79.899 Other long term (current) drug therapy
CPT/HCPCS: 36415; 74176; 80048; 80076; 81003; 83690; 85025; 86140; 87040; 96361; 96374; 96375; 99284; J0696; J2405

== ENCOUNTER 2017-03-22 12:16 | Emergency (ER) | payer MEDICARE, OTHER ==
[~2017-03-22 12:16] MED LIST changes: +MS CONTIN PO; +VANCOMYCIN IV; +ZANAFLEX PO
[2017-03-22 13:00] LABS: BASOPHIL# 0.2 X10e3 (0-0.3); BASOPHIL% 1.3 % (0-2.5); EOSINOPHIL# 0.2 X10e3 (0-0.7); EOSINOPHIL% 1.4 % (0.0-7.0); HEMATOCRIT 35.2 % (38.0-50.0); HEMOGLOBIN 10.8 gm/dL (13.0-16.0); LYMPHOCYTE# 0.7 X10e3 (1.0-3.5); LYMPHOCYTE% 5.8 % (17.0-45.0); MEAN CORPUSCULAR HEMOGLOBIN 21.8 PG (28-34); MEAN CORPUSCULAR HGB CONC 30.7 g/dL (30-36); MEAN PLATELET VOLUME 7.4 FL (6.5-11.5); MONOCYTE# 0.6 X10e3 (0-1.0); MONOCYTE% 5.3 % (3.0-12.0); NEUTROPHIL# 10.4 X10e3 (1.5-7.1); NEUTROPHIL% 86.2 % (40-75); PLATELET COUNT 400 X10e3 (140-420); RED BLOOD COUNT 4.95 X10e (3.90-5.60); RED CELL DISTRIBUTION WIDTH 18.1 % (11.0-15.5)
[2017-03-22 13:01] LABS: DIFF IND NO
[2017-03-22 13:08] LABS: INR 1.1; PROTHROMBIN TIME (PATIENT) 12.3 SECONDS (9.5-12.4)
[2017-03-22 13:15] LABS: PARTIAL THROMBOPLASTIN TIME 27.1 SECONDS (25.6-38.1)
[2017-03-22 13:17] LABS: BILIRUBIN, DIRECT 0.1 mg/dL (0.0-0.2); BILIRUBIN,INDIRECT 0.2 mg/dL (0.0-0.9); BILIRUBIN,TOTAL 0.3 mg/dL (0.2-2.0); BUN/CREATININE RATIO 10.9; CALCIUM SERUM 9.4 mg/dL (8.4-10.2); CREATININE SERUM 1.1 mg/dL (0.6-1.4); GLOM FILT RATE Estimated 84.7 mL/min (>60); POTASSIUM 3.8 mmol/L (3.5-5.1); PROTEIN TOTAL SERUM 8.6 g/dL (6.0-8.3)
[2017-03-22 16:29] LABS: URINE SOURCE CLEAN CATCH
[2017-03-22 16:33] LABS: URINE APPEARANCE CLEAR; URINE BILIRUBIN NEG (NEG); URINE BLOOD NEG (NEG); URINE COLOR YELLOW; URINE GLUCOSE NEG (NORM); URINE KETONE NEG (NEG); URINE LEUKOCYTE ESTERASE NEG (NEG); URINE NITRATE NEG (NEG); URINE PH 7.5 (5-8); URINE PROTEIN NEG (NEG); URINE UROBILINOGEN 0.2 MG/DL (NORM)
[2017-03-22 16:34] LABS: MICRO INDICATED? NO
[2017-03-22 16:43] LABS: AMPHETAMINE NEG (NEG); BARBITURATES NEG (NEG); BENZODIAZEPINES POS (NEG); COCAINE NEG (NEG); MARIJUANA NEG (NEG); OPIATES POS (NEG); TRICYCLIC ANTIDEPRESSANTS NEG (NEG); U METHADONE NEG (NEG)
== END 2017-03-22 16:45 ==
LOC: SED 12:16 → CEDOF 16:53
PROVIDERS: Emergency Medicine
DX: M54.16 Radiculopathy, lumbar region (principal); I10 Essential (primary) hypertension; M21.371 Foot drop, right foot; Z98.890 Other specified postprocedural states; Z79.899 Other long term (current) drug therapy; Z88.5 Allergy status to narcotic agent; Z88.1 Allergy status to other antibiotic agents; Z88.8 Allergy status to other drugs, medicaments and biological substances; Z90.49 Acquired absence of other specified parts of digestive tract; Z91.040 Latex allergy status
CPT/HCPCS: 36415; 80048; 80076; 80307; 81003; 85025; 85610; 85730; 87040; 96361; 96374; 96375; 96376; 99284; 99285; J1170; J1642; J2405

== ENCOUNTER 2017-04-01 12:54 | Emergency (ER) | payer MEDICARE ==
--- NOTE | ~2017-04-01 | CO ---
Unit #: [id number] #: [id number] Patient: TETE YAN [id number] [facility] [address] [facility]. [place], [place] [address] [id number] E MR#: [id number] NAME: TETE YAN ROOM: Age: 37 Sex: M Admission Date: 04/01/2017 : 1980 Attending Physician: Luis Alberto Haines M.D. Primary Care Physician: Ulysses Reed M.D. CONSULTATION REPORT HISTORY OF PRESENT ILLNESS Tete Yan is a 37-year-old male who is well known to me from multiple lumbar spine surgeries. He was recently admitted to [facility] and was discharged yesterday. He had spinal imaging that consisted of an MRI and a CT scan. I did not feel there was anything amenable to further decompression. I recommended pain management. To that end, Dr. Anitra Tamayo saw him in consultation and has gracefully agreed to assume his pain management. I saw him today. He is of good function. He maintains his good function with his oxycodone 30 mg and his MS Contin 100 mg twice daily. He was given a prescription for oxycodone 30 mg to take every four hours as needed for pain. He will follow up with me in two weeks in the emergency room at [facility]. REVIEW OF SYSTEMS His 14-point review of systems is negative except for right leg pain. PHYSICAL EXAMINATION EXTREMITIES: He has limited motion in his right leg secondary to pain. Dictated by... Augie Bosch/lyric TD: 04/01/2017 14:44 JOB #: [id number] CC: Anitra Tamayo M.D. CONSULTATION REPORT Page 1 of 1 X Cachorro Haro MD CONSULTATION REPORT
== END 2017-04-01 13:50 | disposition home or self-care (01) ==
LOC: CED 12:54
DX: Z53.21 Procedure and treatment not carried out due to patient leaving prior to being seen by health care provider (principal)

== ENCOUNTER 2017-04-13 04:18 | Emergency (ER) | payer MEDICARE, OTHER ==
[2017-04-13] MEDS ORDERED: DIAZEPAM (04:26)
== END 2017-04-13 05:51 | disposition home or self-care (01) ==
LOC: SED 04:18
DX: F41.9 Anxiety disorder, unspecified (principal); F17.200 Nicotine dependence, unspecified, uncomplicated; Z90.49 Acquired absence of other specified parts of digestive tract; Z98.890 Other specified postprocedural states; Z88.2 Allergy status to sulfonamides; Z88.1 Allergy status to other antibiotic agents; Z88.5 Allergy status to narcotic agent; Z88.8 Allergy status to other drugs, medicaments and biological substances; Z91.040 Latex allergy status; Z79.899 Other long term (current) drug therapy
CPT/HCPCS: 82947; 96361; 96374; 99284; J2405

== ENCOUNTER 2017-04-23 11:54 | Emergency (ER) | payer MEDICARE ==
[~2017-04-23 11:54] MED LIST changes: +DIAZEPAM
== END 2017-04-23 13:14 | disposition left against medical advice (07) ==
LOC: CFTX 11:54 → CED 11:54
DX: Z53.21 Procedure and treatment not carried out due to patient leaving prior to being seen by health care provider (principal)

== ENCOUNTER 2017-06-02 17:08 | Emergency (ER) | payer MEDICARE ==
[2017-06-02] MEDS ORDERED: VICODIN (17:14)
== END 2017-06-02 18:00 | disposition home or self-care (01) ==
LOC: SED 17:08
DX: R55 Syncope and collapse (principal); Z90.49 Acquired absence of other specified parts of digestive tract; Z98.890 Other specified postprocedural states; Z79.899 Other long term (current) drug therapy; Z88.2 Allergy status to sulfonamides; Z91.040 Latex allergy status; Z88.8 Allergy status to other drugs, medicaments and biological substances
CPT/HCPCS: 99283

== ENCOUNTER 2017-06-06 03:54 | Emergency (ER) | payer MEDICARE, OTHER ==
[~2017-06-06] VITALS: Ht 182.9 cm; Wt 104.3 kg
--- NOTE | ~2017-06-06 | CT2 ---
[facility] A Service of [facility] RADIOLOGY TEXT RESULTS PATIENT: TETE SHERWOOD LOCATION: SED : [birth year] UNIT #: [id number] AGE: [address]: Roberto Reid MD SEX: M ORDER DR: [id number] [address] [address] [id number] E MR#: [id number] Acc #: [id number] NAME: TETE SHERWOOD : 1980 SEX: M STUDY DATE/TIME: 06/06/2017 6:53 UNIT: SED ROOM: STUDY DESCRIPTION: CT Abd and Pelv W Cont Attending Physician: Roberto Reid M.D. Ordering Physician: Maximo Galvez M.D. Primary Care Physician: Ulysses Reed M.D. MEDICAL IMAGING REPORT This report is preliminary unless electronic signature is present. EXAM CT abdomen and pelvis with contrast HISTORY Nausea, vomiting and diarrhea since 9:00 a.m. yesterday morning with low abdomen pain. Patient was diagnosed with C-Difficile in the past. COMPARISON 02/09/2017 TECHNIQUE Patient was 100 mL of Isovue 370 and axial 5 mm images were obtained through the abdomen and pelvis. This CT exam was performed with one or more of the following radiation dose reduction techniques: automatic control, adjustment of mA and/or kV according to patient size, and iterative reconstruction. FINDINGS Lung bases are clear. The liver, gallbladder, spleen, pancreas, adrenal glands and kidneys are normal. The colon is mostly collapsed. I cannot identify any wall thickening. There is a 1 short segment of dilated small bowel in the left upper quadrant that is about 3 cm in transverse dimension and is filled with air. There is no wall thickening. I think this is probably due to peristalsis. The bladder and prostate gland are normal. The aorta is normal in size and there is no adenopathy. There are extensive postoperative changes in the lumbar spine with pedicle screws at L3,4,5, and S1. There is grade 2 anterior spondylolisthesis at L5 and S1. That is stable. IMPRESSION 1. Stable postoperative changes lumbar spine. 2. Otherwise study is normal. There is 1 single slightly dilated loop of STS. [facility] A Service of [facility] RADIOLOGY TEXT RESULTS PATIENT: TETE SHERWOOD LOCATION: SED : [birth year] UNIT #: [id number] AGE: [address]: Roberto Reid MD SEX: M ORDER DR: small intestine in the upper abdomen but there is no evidence of wall thickening or inflammation and I think this probably due to peristalsis. Dictated by... Roberto Gibson M.D. THIS IS AN ELECTRONICALLY VERIFIED REPORT Roberto Gibson M.D. at 06/07/2017 9:34 PM JOSSELYN/porter TD: 06/06/2017 22:15 JOB #: [id number] MEDICAL IMAGING REPORT Page 1 of 1
[~2017-06-06 03:54] MED LIST changes: +VICODIN
[2017-06-06] MEDS ORDERED: HYDROCODON-ACE1 EAC5 PO (04:19)
[2017-06-06] MEDS ORDERED: DIAZEPAM PO (04:20)
[2017-06-06] MEDS ORDERED: MS CONTIN30 MG (04:20)
[2017-06-06 05:33] LABS: BASOPHIL# 0.1 X10e3 (0-0.3); BASOPHIL% 0.9 % (0-2.5); EOSINOPHIL# 0.2 X10e3 (0-0.7); EOSINOPHIL% 2.2 % (0.0-7.0); HEMATOCRIT 35.7 % (35.0-45.0); HEMOGLOBIN 11.7 gm/dL (12.0-16.0); LYMPHOCYTE# 1.3 X10e3 (1.0-3.5); LYMPHOCYTE% 12.9 % (17.0-45.0); MEAN CORPUSCULAR HEMOGLOBIN 20.9 PG (28-34); MEAN CORPUSCULAR HGB CONC 32.7 g/dL (30-36); MEAN PLATELET VOLUME 7.3 FL (6.5-11.5); MONOCYTE# 0.5 X10e3 (0-1.0); MONOCYTE% 4.6 % (3.0-12.0); NEUTROPHIL% 79.4 % (40-75); PLATELET COUNT 376 X10e3 (140-420); RED BLOOD COUNT 5.58 X10e (3.90-5.30); RED CELL DISTRIBUTION WIDTH 20.7 % (11.0-15.5); WHITE BLOOD COUNT 10.1 X10e3 (4.0-10.5)
[2017-06-06 05:35] LABS: DIFF IND NO
[2017-06-06 05:42] LABS: URINE SOURCE CLEAN CATCH
[2017-06-06 05:44] LABS: URINE APPEARANCE CLEAR; URINE BILIRUBIN NEG (NEG); URINE BLOOD NEG (NEG); URINE COLOR YELLOW; URINE GLUCOSE NEG (NORM); URINE KETONE NEG (NEG); URINE LEUKOCYTE ESTERASE TRACE (NEG); URINE NITRATE NEG (NEG); URINE PROTEIN NEG (NEG); URINE SPECIFIC GRAVITY 1.015 (1.003-1.035); URINE UROBILINOGEN 0.2 MG/DL (NORM)
[2017-06-06 05:47] LABS: ALBUMIN SERUM 4.4 g/dL (3.5-5.0); ALKALINE PHOSPHATASE 89 U/L (32-92); ALT (SGPT) 19 U/L (10-40); AST (SGOT) 25 U/L (10-42); BILIRUBIN,TOTAL 0.7 mg/dL (0.2-2.0); BLOOD UREA NITROGEN 8 mg/dL (9-23); BUN/CREATININE RATIO 6.15; CALCIUM SERUM 9.5 mg/dL (8.4-10.2); CARBON DIOXIDE 24 mmol/L (22-31); CHLORIDE 104 mmol/L (100-111); CREATININE SERUM 1.3 mg/dL (0.6-1.4); GLUCOSE FASTING 107 mg/dL (70-110); LIPASE 38 U/L (22-51); POTASSIUM 3.3 mmol/L (3.5-5.1); PROTEIN TOTAL SERUM 8.5 g/dL (6.0-8.3); SODIUM 138 mmol/L (135-145)
[2017-06-06 05:48] LABS: BILIRUBIN, DIRECT <0.1 mg/dL (0.0-0.2); BILIRUBIN,INDIRECT 0.6 mg/dL (0.0-0.9)
[2017-06-06 05:49] LABS: MICRO INDICATED? YES
[2017-06-06 05:50] LABS: CULTURE INDICATED? NO; URINE BACTERIA NEG (NEG); URINE MUCUS PRESENT; URINE RBC 0-2 /[HPF] (0-2); URINE SQUAMOUS EPITHELIAL CELL OCCAS /[HPF]
== END 2017-06-06 07:47 | disposition home or self-care (01) ==
LOC: SED 03:54 → EDSEX 04:40 → SED 04:40
PROVIDERS: Emergency Medicine
DX: K52.9 Noninfective gastroenteritis and colitis, unspecified (principal); Z91.040 Latex allergy status; Z88.2 Allergy status to sulfonamides; Z88.6 Allergy status to analgesic agent
CPT/HCPCS: 36415; 74177; 80048; 80076; 81003; 83690; 85025; 87045; 87427; 87493; 87899; 96365; 96375; 99284; J1170; J2405; J2550; Q9967

== ENCOUNTER 2017-06-19 03:37 | Emergency (ER) | payer MEDICARE ==
[~2017-06-19] VITALS: Ht 182.9 cm; Wt 103.4 kg
--- NOTE | ~2017-06-19 | CT98 ---
[facility] A Service of [facility] RADIOLOGY TEXT RESULTS PATIENT: TETE SHERWOOD LOCATION: SED : [birth year] UNIT #: [id number] AGE: [address]: Keaton Whitlock MD SEX: M ORDER DR: [id number] [place] [id number] E MR#: [id number] Acc #: [id number] NAME: TETE SHERWOOD : 1980 SEX: M STUDY DATE/TIME: 06/19/2017 4:41 UNIT: SED ROOM: STUDY DESCRIPTION: CT Lumbar Spine Wo Cont Attending Physician: Keaton Whitlock M.D. Ordering Physician: Keaton Whitlock M.D. Primary Care Physician: Ulysses Reed M.D. MEDICAL IMAGING REPORT This report is preliminary unless electronic signature is present. EXAM CT lumbar spine, 06/19/2017. HISTORY 37-year-old male in the ED complaining of low back pain after tripping and falling yesterday. Prior history of extensive lumbar spine surgery, most recently imaged here with CT 05/05/2017. TECHNIQUE Thin-section axial CT images were obtained from the lower margin of T11 through the upper portion of the sacrum. Sagittal and coronal images were reconstructed. This CT exam was performed with one or more of the following radiation dose reduction techniques: automatic exposure control, adjustment of mA and/or kV according to patient size, and iterative reconstruction. FINDINGS No fracture or other acute osseous abnormality is demonstrated. Postop changes posterior fusion at L3-4, L4-5, and L5-S1 with bilateral hellen and pedicle screw fixation hardware in place. Pedicle screws at L3, L4, and S1. Anterior fixation hardware at L5-S1. Bilateral L5 spondylolysis with grade 2 anterolisthesis at the postoperative L5-S1 disc space. Moderately severe to severe bilateral osseous neural foraminal stenosis at L4-5 and L5-S1. There has been no significant change since the previous examination of 05/05/2017. IMPRESSION 1. No fracture other acute osseous abnormality is demonstrated. [facility] A Service of [facility] RADIOLOGY TEXT RESULTS PATIENT: TETE SHERWOOD LOCATION: [facility] : [birth year] UNIT #: [id number] AGE: [address]: Keaton Whitlock MD SEX: M ORDER DR: 2. Extensive postoperative changes involving the lower lumbar spine as noted above. 3. No significant change since 05/04/2017. Dictated by... Almas Rizvi M.D. THIS IS AN ELECTRONICALLY VERIFIED REPORT Almas Rizvi M.D. at 06/19/2017 5:07 PM KAREEMW/marlin TD: 06/19/2017 10:21 JOB #: [id number] MEDICAL IMAGING REPORT Page 1 of 1
[~2017-06-19 03:37] MED LIST changes: +HYDROCODON-ACE1 EAC5 PO; +MS CONTIN30 MG
[2017-06-19] MEDS ORDERED: ZANAFLEX4 M1 PO (03:50)
[2017-06-19 04:35] LABS: URINE SOURCE CLEAN CATCH
[2017-06-19 04:38] LABS: URINE APPEARANCE CLEAR; URINE BILIRUBIN NEG (NEG); URINE BLOOD TRACE-LYSED (NEG); URINE COLOR YELLOW; URINE GLUCOSE NEG (NORM); URINE KETONE TRACE (NEG); URINE LEUKOCYTE ESTERASE NEG (NEG); URINE NITRATE NEG (NEG); URINE PH 6.5 (5-8); URINE PROTEIN TRACE (NEG)
[2017-06-19 04:44] LABS: MICRO INDICATED? YES
[2017-06-19 04:45] LABS: CULTURE INDICATED? NO; URINE BACTERIA NEG (NEG); URINE MUCUS PRESENT; URINE RBC 0-2 /[HPF] (0-2); URINE SQUAMOUS EPITHELIAL CELL OCCAS /[HPF]; URINE TRANSITIONAL EPI CELLS FEW /[HPF]
[2017-06-19] MEDS ORDERED: MS CONTIN100 MG PO (12:07)
[2017-06-19] MEDS ORDERED: OXYCONTIN PO (12:07)
== END 2017-06-19 05:52 | disposition home or self-care (01) ==
LOC: SED 03:37
DX: M54.5 Low back pain (principal); Z91.040 Latex allergy status; Z88.2 Allergy status to sulfonamides; Z88.1 Allergy status to other antibiotic agents; Z88.5 Allergy status to narcotic agent; Z88.6 Allergy status to analgesic agent; Z88.8 Allergy status to other drugs, medicaments and biological substances
CPT/HCPCS: 36415; 72131; 81003; 90471; 96361; 96372; 96374; 96375; 99284

== ENCOUNTER 2017-06-19 11:30 | Emergency (ER) | payer MEDICARE ==
[2017-06-19] MEDS ORDERED: OXYCONTIN PO (12:07)
[2017-06-19] MEDS ORDERED: MS CONTIN100 MG PO (12:07)
[2017-06-19 13:41] LABS: BASOPHIL# 0.1 X10e3 (0-0.3); BASOPHIL% 0.8 % (0-2.5); DIFF IND NO; EOSINOPHIL# 0.3 X10e3 (0-0.7); EOSINOPHIL% 3.6 % (0.0-7.0); HEMATOCRIT 34.5 % (38.0-50.0); HEMOGLOBIN 10.9 gm/dL (13.0-16.0); LYMPHOCYTE% 13.1 % (17.0-45.0); MEAN CELL VOLUME 65.8 FL (83-96); MEAN CORPUSCULAR HEMOGLOBIN 20.8 PG (28-34); MEAN CORPUSCULAR HGB CONC 31.6 g/dL (30-36); MEAN PLATELET VOLUME 8.4 FL (6.5-11.5); MONOCYTE# 0.5 X10e3 (0-1.0); MONOCYTE% 6.8 % (3.0-12.0); NEUTROPHIL# 5.9 X10e3 (1.5-7.1); NEUTROPHIL% 75.7 % (40-75); PLATELET COUNT 257 X10e3 (140-420); RED BLOOD COUNT 5.24 X10e (3.90-5.60); RED CELL DISTRIBUTION WIDTH 21.7 % (11.0-15.5); WHITE BLOOD COUNT 7.8 X10e3 (4.0-10.5)
[2017-06-19 14:10] LABS: ALBUMIN SERUM 4.2 g/dL (3.5-5.0); ALKALINE PHOSPHATASE 66 U/L (32-92); ALT (SGPT) 12 U/L (10-40); AMYLASE 20 U/L (0-46); AST (SGOT) 16 U/L (10-42); BILIRUBIN,TOTAL 0.6 mg/dL (0.2-2.0); BLOOD UREA NITROGEN 16 mg/dL (9-23); CALCIUM SERUM 9.2 mg/dL (8.4-10.2); CARBON DIOXIDE 26 mmol/L (22-31); CHLORIDE 102 mmol/L (100-111); GLOM FILT RATE Estimated 95.1 mL/min (>60); GLUCOSE FASTING 107 mg/dL (70-110); LIPASE 28 U/L (22-51); POTASSIUM 3.8 mmol/L (3.5-5.1); PROTEIN TOTAL SERUM 7.5 g/dL (6.0-8.3); SODIUM 136 mmol/L (135-145)
[2017-06-19 14:14] LABS: BILIRUBIN, DIRECT <0.1 mg/dL (0.0-0.2); BILIRUBIN,INDIRECT 0.5 mg/dL (0.0-0.9)
[2017-06-19 14:22] LABS: URINE APPEARANCE CLEAR; URINE BILIRUBIN NEG (NEG); URINE BLOOD NEG (NEG); URINE COLOR YELLOW; URINE GLUCOSE NEG (NORM); URINE KETONE NEG (NEG); URINE LEUKOCYTE ESTERASE 1+ (NEG); URINE NITRATE NEG (NEG); URINE PROTEIN NEG (NEG); URINE SOURCE CLEAN CATCH
[2017-06-19 14:30] LABS: MICRO INDICATED? YES
[2017-06-19 14:31] LABS: CULTURE INDICATED? NO; URINE BACTERIA NEG (NEG); URINE MUCUS PRESENT; URINE RBC NEG /[HPF] (0-2); URINE SQUAMOUS EPITHELIAL CELL MODERATE /[HPF]
== END 2017-06-19 16:03 | disposition home or self-care (01) ==
LOC: SED 11:30
PROVIDERS: Emergency Medicine
DX: R33.9 Retention of urine, unspecified (principal); K66.0 Peritoneal adhesions (postprocedural) (postinfection); I10 Essential (primary) hypertension; F41.9 Anxiety disorder, unspecified; Z90.49 Acquired absence of other specified parts of digestive tract; Z88.2 Allergy status to sulfonamides; Z88.6 Allergy status to analgesic agent; Z91.040 Latex allergy status; Z88.8 Allergy status to other drugs, medicaments and biological substances; Z79.899 Other long term (current) drug therapy
CPT/HCPCS: 36415; 80048; 80076; 81003; 82150; 83690; 85025; 96361; 96374; 96375; 99283; J1170; J2405

== ENCOUNTER 2017-06-20 02:23 | Emergency (ER) | payer MEDICARE ==
--- NOTE | ~2017-06-20 | CT4 ---
[facility] A Service of [facility] RADIOLOGY TEXT RESULTS PATIENT: TETE YAN LOCATION: SED : 78 UNIT #: [id number] AGE: [address]: Keaton Whitlock MD SEX: M ORDER DR: [id number] [address] [id number] MR#: [id number] Acc #: [id number] NAME: TETE YAN : 1980 SEX: M STUDY DATE/TIME: 06/20/2017 02:59 UNIT: SED ROOM: STUDY DESCRIPTION: CT Abd and Pelv Wo Cont Attending Physician: Keaton Whitlock M.D. Ordering Physician: Keaton Whitlock M.D. Primary Care Physician: Ulysses Reed M.D. MEDICAL IMAGING REPORT This report is preliminary unless electronic signature is present. EXAM CT of the abdomen and pelvis INDICATIONS Low back pain and lower abdominal pain with inability to urinate since a fall 2 days ago. TECHNIQUE Axial images were obtained through the abdomen and pelvis without contrast. Multiplanar reformats were obtained. COMPARISON STUDIES Comparison made with abdomen and pelvis CT from 06/06/2017. This CT exam was performed with one or more of the following radiation dose reduction techniques: automatic exposure control, adjustment of mA and/or kV according to patient size, and iterative reconstruction. FINDINGS Abdomen: There is some dependent atelectasis in both lungs. The gallbladder is normal. There is some motion degradation on the exam. Tiny bilateral nonobstructing renal stones are present. No ureteral stones are seen, there is no hydronephrosis. The unenhanced solid organs are otherwise normal. No free fluid is seen. Unopacified GI tract is grossly normal. Pelvis: There are no lower ureteral stones. The bladder is normal. There is a fat-containing inguinal hernia on the right. No free fluid. The appendix is surgically absent. The unopacified GI tract is otherwise normal. The appearance of the lumbar spine is unchanged from CT performed yesterday. [facility] A Service of [facility] RADIOLOGY TEXT RESULTS PATIENT: TETE YAN LOCATION: [facility] : [birth year] UNIT #: [id number] AGE: [address]: Keaton Whitlock MD SEX: M ORDER DR: IMPRESSION 1. Motion degraded exam. No acute findings. 2. Tiny bilateral nonobstructing renal stones. No ureteral stones are seen, there is no hydronephrosis. 3. Grossly normal unopacified GI tract except for changes of appendectomy. 4. Small fat-containing inguinal hernia on the right. 5. Extensive postop change of the lumbar spine, unchanged from yesterday's L-spine CT. 6. Dependent atelectasis in the lungs. Dictated by... Js Giordano Jr., M.D. THIS IS AN ELECTRONICALLY VERIFIED REPORT Js Giordano Jr., M.D. at 06/21/2017 4:57 AM KAYLEN/serge TD: 06/20/2017 23:07 JOB #: [id number] MEDICAL IMAGING REPORT Page 1 of 1
[~2017-06-20 02:23] MED LIST changes: +MS CONTIN100 MG PO; +OXYCONTIN PO
[2017-06-20 03:17] LABS: URINE SOURCE CLEAN CATCH
[2017-06-20 03:20] LABS: BASOPHIL% 0.5 % (0-2.5); EOSINOPHIL# 0.3 X10e3 (0-0.7); EOSINOPHIL% 3.2 % (0.0-7.0); HEMATOCRIT 33.7 % (38.0-50.0); HEMOGLOBIN 10.7 gm/dL (13.0-16.0); LYMPHOCYTE# 0.9 X10e3 (1.0-3.5); LYMPHOCYTE% 8.9 % (17.0-45.0); MEAN CELL VOLUME 65.7 FL (83-96); MEAN CORPUSCULAR HEMOGLOBIN 20.9 PG (28-34); MEAN CORPUSCULAR HGB CONC 31.8 g/dL (30-36); MEAN PLATELET VOLUME 7.2 FL (6.5-11.5); MONOCYTE# 0.8 X10e3 (0-1.0); MONOCYTE% 8.1 % (3.0-12.0); NEUTROPHIL# 8.1 X10e3 (1.5-7.1); NEUTROPHIL% 79.3 % (40-75); PLATELET COUNT 253 X10e3 (140-420); RED BLOOD COUNT 5.13 X10e (3.90-5.60); RED CELL DISTRIBUTION WIDTH 22.1 % (11.0-15.5); URINE APPEARANCE CLEAR; URINE BILIRUBIN NEG (NEG); URINE BLOOD TRACE-LYSED (NEG); URINE COLOR YELLOW; URINE GLUCOSE NEG (NORM); URINE KETONE NEG (NEG); URINE LEUKOCYTE ESTERASE NEG (NEG); URINE NITRATE NEG (NEG); URINE PROTEIN NEG (NEG); URINE SPECIFIC GRAVITY 1.015 (1.003-1.035); WHITE BLOOD COUNT 10.2 X10e3 (4.0-10.5)
[2017-06-20 03:21] LABS: DIFF IND NO
[2017-06-20 03:25] LABS: MICRO INDICATED? YES
[2017-06-20 03:26] LABS: CULTURE INDICATED? NO; URINE BACTERIA NEG (NEG); URINE SQUAMOUS EPITHELIAL CELL OCCAS /[HPF]
[2017-06-20 03:45] LABS: BILIRUBIN,TOTAL 0.8 mg/dL (0.2-2.0); CALCIUM SERUM 8.5 mg/dL (8.4-10.2); GLOM FILT RATE Estimated 95.1 mL/min (>60); POTASSIUM 3.7 mmol/L (3.5-5.1)
== END 2017-06-20 05:26 | disposition home or self-care (01) ==
LOC: SED 02:23
DX: M54.5 Low back pain (principal); G89.29 Other chronic pain; Z79.899 Other long term (current) drug therapy; Z88.2 Allergy status to sulfonamides; Z88.5 Allergy status to narcotic agent; Z88.1 Allergy status to other antibiotic agents; Z91.040 Latex allergy status; Z88.8 Allergy status to other drugs, medicaments and biological substances
CPT/HCPCS: 36415; 51702; 74176; 80053; 81003; 85025; 99284; J1170; J2550

== ENCOUNTER 2017-06-20 08:03 | Emergency (ER) | payer MEDICARE ==
--- NOTE | ~2017-06-20 | CT4 ---
[facility] A Service [facility] RADIOLOGY TEXT RESULTS PATIENT: TETE YAN LOCATION: SED : [birth year] UNIT #: [id number] AGE: [address]: Roberto Reid MD SEX: M ORDER DR: [id number] [place] [id number] E MR#: [id number] Acc #: [id number] NAME: TETE YAN : 1980 SEX: M STUDY DATE/TIME: 06/20/2017 8:50 UNIT: SED ROOM: STUDY DESCRIPTION: CT Abd and Pelv Wo Cont Attending Physician: Roberto Reid M.D. Ordering Physician: Roberto Reid M.D. Primary Care Physician: Ulysses Reed M.D. MEDICAL IMAGING REPORT This report is preliminary unless electronic signature is present. EXAM CT abdomen and pelvis without contrast HISTORY Stomach pains. Patient has been seen multiple times in the past 24 hours at this institution for low back pain, low abdominal pain and inability to urinate after falling 2 days ago. He had lumbar spine CT on 06/19/2017. Abdomen and pelvis CT on 06/20/2017 at 02:59 a.m. Now, he returns for repeat abdomen and pelvis CT at 08:50 a.m. History of appendectomy, spine surgery, hypertension, anxiety, renal insufficiency. TECHNIQUE CT abdomen and pelvis performed without IV or oral contrast media in the axial plane followed by sagittal and coronal reconstructed imaging. This CT exam was performed with one or more of the following radiation dose reduction techniques: automatic exposure control, adjustment of mA and/or kV according to patient size, and iterative reconstruction. COMPARISON STUDIES CT is from 02:59 a.m. 06/20/2017. FINDINGS There is limitation of the study by the lack of IV and oral contrast media for evaluation for pathology other than urinary tract calculus disease. There was some motion degradation on the previous study. The lung bases are clear. Evaluation of the abdomen shows unremarkable appearance. The unenhanced liver, gallbladder, spleen, adrenal glands, and pancreas. [facility] A Service of [facility] & [facility] RADIOLOGY TEXT RESULTS PATIENT: TETE YAN LOCATION: SED : [birth year] UNIT #: [id number] AGE: [address]: Roberto Reid MD SEX: M ORDER DR: There are bilateral intrarenal non-obstructing calculi. On the right side, the largest is about 3 mm dimension. On the left side, the largest is about 4 mm dimension. These are better seen on the current study than prior study because of the motion on the prior study. There is no hydronephrosis. There is no ureteral calculus. There is no abdominal aortic aneurysm. Evaluation of the pelvis shows no bladder calculus. There is a small amount of air in the bladder, presumably from recent catheterization. Please correlate further clinically. Small fat-containing yhrop-yrxcpio-vwmc-left side inguinal hernia is again identified. Moderate amount of stool, distal colon. Appendix surgically absent. Nothing to suggest bowel obstruction or free intraperitoneal air. No gross drainable fluid collection on this noncontrast exam. There are extensive postoperative changes to the spine. Please refer back to the CT scan from the . IMPRESSION 1. There are multiple bilateral non-obstructing intrarenal calculi. There is no evidence for hydronephrosis or obstructing calculus. There is no bladder calculus. 2. There is small amount of air in the bladder, presumably from recent catheterization. 3. The patient has had an appendectomy. 4. Study is limited by the lack of IV and oral contrast media for evaluation for pathology other than urinary tract calculus disease. 5. There are extensive postsurgical changes to the lumbar spine. Please refer to the CT scan of the lumbar spine from 06/19/2017. This study is being compared to an abdominal and pelvic CT scan from last evening at 02:59 a.m. Dictated by... Milagros Romero M.D. THIS IS AN ELECTRONICALLY VERIFIED REPORT Milagros Romero M.D. at 06/21/2017 3:51 PM SAC/pcl TD: 06/21/2017 13:11 JOB #: [id number] MEDICAL IMAGING REPORT Page 1 of 1
--- NOTE | ~2017-06-20 | EKG ---
PATIENT: TETE YAN UNIT #: [id number] Ventricular Rate: 92 BPM Atrial Rate: 92 BPM P-R Interval: 182 ms QRS Duration: 80 ms Q-T Interval: 344 ms QTC Calculation(Bezet): 425 ms P Palermo: 18 degrees Calculated R Palermo: 5 degrees Calculated T Palermo: 32 degrees Diagnosis Line: Normal sinus rhythm Diagnosis Line: Minimal voltage criteria for LVH, may be normal Diagnosis Line: variant Diagnosis Line: Nonspecific T wave abnormality Diagnosis Line: Abnormal ECG Diagnosis Line: When compared with ECG of 10-DEC-2016 07:06, Diagnosis Line: UT interval has decreased Diagnosis Line: Vent. rate has increased BY 41 BPM Diagnosis Line: Nonspecific T wave abnormality now evident in Diagnosis Line: Lateral leads Diagnosis Line: Confirmed by ROMAN CARABALLO MD ([id number]) on Diagnosis Line: 06/22/2017 3:09:14 PM INTERPRETING MD: RASHMI EVANS
[2017-06-20 08:57] LABS: URINE SOURCE CLEAN CATCH
[2017-06-20 09:00] LABS: URINE APPEARANCE CLEAR; URINE BILIRUBIN NEG (NEG); URINE BLOOD TRACE-INTACT (NEG); URINE COLOR YELLOW; URINE GLUCOSE NEG (NORM); URINE KETONE NEG (NEG); URINE LEUKOCYTE ESTERASE NEG (NEG); URINE NITRATE NEG (NEG); URINE PROTEIN NEG (NEG); URINE UROBILINOGEN 0.2 MG/DL (NORM)
[2017-06-20 09:01] LABS: MICRO INDICATED? YES
[2017-06-20 09:08] LABS: CULTURE INDICATED? NO; URINE BACTERIA NEG (NEG); URINE SQUAMOUS EPITHELIAL CELL OCCAS /[HPF]; URINE WBC NEG /[HPF] (0-5)
[2017-06-20 09:26] LABS: BASOPHIL# 0.1 X10e3 (0-0.3); BASOPHIL% 0.6 % (0-2.5); EOSINOPHIL# 0.2 X10e3 (0-0.7); EOSINOPHIL% 2.1 % (0.0-7.0); HEMATOCRIT 36.7 % (38.0-50.0); HEMOGLOBIN 11.8 gm/dL (13.0-16.0); LYMPHOCYTE# 0.9 X10e3 (1.0-3.5); LYMPHOCYTE% 8.1 % (17.0-45.0); MEAN CELL VOLUME 65.2 FL (83-96); MEAN CORPUSCULAR HEMOGLOBIN 20.9 PG (28-34); MEAN CORPUSCULAR HGB CONC 32.1 g/dL (30-36); MEAN PLATELET VOLUME 8.7 FL (6.5-11.5); MONOCYTE# 0.7 X10e3 (0-1.0); MONOCYTE% 6.4 % (3.0-12.0); NEUTROPHIL# 9.3 X10e3 (1.5-7.1); NEUTROPHIL% 82.8 % (40-75); PLATELET COUNT 312 X10e3 (140-420); RED BLOOD COUNT 5.62 X10e (3.90-5.60); WHITE BLOOD COUNT 11.2 X10e3 (4.0-10.5)
[2017-06-20 09:28] LABS: DIFF IND NO
[2017-06-20 09:44] LABS: POC - CKMB <1.0 ng/mL (0.0-7.9); POC - TROPONIN <0.05 ng/mL (<=0.05)
[2017-06-20 09:51] LABS: ALBUMIN SERUM 5.1 g/dL (3.5-5.0); ALKALINE PHOSPHATASE 79 U/L (32-92); ALT (SGPT) 13 U/L (10-40); AST (SGOT) 17 U/L (10-42); BLOOD UREA NITROGEN 10 mg/dL (9-23); BUN/CREATININE RATIO 9.09; CALCIUM SERUM 9.9 mg/dL (8.4-10.2); CARBON DIOXIDE 25 mmol/L (22-31); CHLORIDE 98 mmol/L (100-111); CREATININE SERUM 1.1 mg/dL (0.6-1.4); GLOM FILT RATE Estimated 84.7 mL/min (>60); GLUCOSE FASTING 126 mg/dL (70-110); LIPASE 34 U/L (22-51); POTASSIUM 3.4 mmol/L (3.5-5.1); PROTEIN TOTAL SERUM 8.9 g/dL (6.0-8.3); SODIUM 136 mmol/L (135-145)
[2017-06-20 09:58] LABS: ALCOHOL BLOOD <5 mg/dL (0)
== END 2017-06-20 14:44 ==
LOC: SED 08:03
PROVIDERS: Emergency Medicine
DX: K31.84 Gastroparesis (principal); F41.9 Anxiety disorder, unspecified; Z79.899 Other long term (current) drug therapy; Z88.2 Allergy status to sulfonamides; Z88.1 Allergy status to other antibiotic agents; Z88.5 Allergy status to narcotic agent; Z91.040 Latex allergy status
CPT/HCPCS: 36415; 74176; 80053; 81003; 82553; 83690; 84484; 85025; 93005; 96361; 96372; 96374; 96375; 99285; G0480; J1170; J2550